=== PATIENT | female | born 1950 | race Caucasian/White ===

== ENCOUNTER 2025-03-13 14:51 | Inpatient (IN) | payer SELFPAY ==
[~2025-03-13] VITALS: Ht 157.5 cm; Wt 73.5 kg
[2025-03-13 14:58] VITALS: O2SAT 98
[2025-03-13 15:59] LABS: BASOPHILS % 0.4 % (0.0-2.0); DIFFERENTIAL COMMENT 0; EOSINOPHILS % 0.9 % (0.0-5.0); HEMOGLOBIN. 10.7 g/dL (12.0-16.0); LYMPHOCYTES % 12.7 % (20.0-50.0); MEAN CORPUSCULAR HGB CONC 32.5 g/dL (31.0-37.0); MEAN CORPUSCULAR VOLUME 76.9 fL (81.0-99.0); MEAN PLATELET VOLUME 7.6 fl (7.4-10.4); MONOCYTES % 8.6 % (2.0-8.0); NEUTROPHILS % 77.4 % (40.0-76.0); PLATELET 242 x1000/uL (130-400); RED CELL DISTRIBUTION WIDTH 19.5 % (11.6-14.6); WHITE BLOOD COUNT 8.9 x1000/uL (4.5-11.0)
[2025-03-13 16:05] LABS: CHLORIDE 103 mEq/L (98-107); POTASSIUM 3.5 mEq/L (3.5-5.1); SODIUM 139 mEq/L (136-145)
[2025-03-13 16:06] LABS: CALCIUM 9.3 mg/dL (8.7-10.4); CARBON DIOXIDE 26 mEq/L (21-32)
[2025-03-13 16:11] LABS: CREATININE 0.6 mg/dL (0.6-1.0); GLUCOSE 126 mg/dL (70-105); UREA NITROGEN BLOOD 15 mg/dL (9-23)
[2025-03-13 16:12] LABS: PROTHROMBIN TIME 10.6 sec (9.6-11.0)
[2025-03-13] MEDS: MORPHINE SULFATE 4 MG/ML INJ (FOR IV/IM USE) IV STA (17:59)
[2025-03-13 20:00] VITALS: BP 120/57; PULSE 78; RESP 20; TEMP 35.6; O2SAT 100
[2025-03-13] MEDS ORDERED: ACETAMINOPHEN 325MG TABLET PO PRN ×2 (21:00)
[2025-03-13] MEDS ORDERED: IPRATROPIUM/ALBUTEROL 0.5-3(2.5)MG/3ML NEB HHN PRN (21:00)
[2025-03-13] MEDS: PANTOPRAZOLE SODIUM 40 MG/VIAL IV SCH (21:16)
[2025-03-13] MEDS: DEXT 5%/0.9% NACL 1,000 ML IV SCH (21:16)
[2025-03-13 21:17] VITALS: BP 136/76; PULSE 104; RESP 17; TEMP 36.7
[2025-03-13] MEDS: MORPHINE SULFATE 4 MG/ML INJ (FOR IV/IM USE) IV PRN (21:37)
[2025-03-14] VITALS: BP 108/54; PULSE 75; RESP 20; TEMP 36.6; O2SAT 98
[2025-03-14 00:18] LABS: CLARITY URINE CLEAR (CLEAR); COLOR URINE YELLOW (YELLOW); GLUCOSE URINE NEGATIVE (NEGATIVE); KETONES URINE 2+ (NEGATIVE); LEUKOCYTE ESTERASE URINE NEGATIVE (NEGATIVE); NITRITE URINE NEGATIVE (NEGATIVE); OCCULT BLOOD URINE NEGATIVE (NEGATIVE); PROTEIN URINE NEGATIVE (NEGATIVE); SPECIFIC GRAVITY URINE 1.022 (1.005-1.030); UROBILINOGEN URINE 0.2 E.U./dL (0.2-1.0)
[2025-03-14 01:04] LABS: *AMPHETAMINES SCREEN URINE NEGATIVE (NEGATIVE); *BARBITURATES SCREEN URINE NEGATIVE (NEGATIVE); *BENZODIAZEPINES SCREEN URINE NEGATIVE (NEGATIVE); *COCAINE SCREEN URINE NEGATIVE (NEGATIVE); CANNABINOID URINE SCREEN NEGATIVE (NEGATIVE); ECSTASY MDMA SCREEN URINE NEGATIVE (NEGATIVE); METHADONE URINE SCREEN NEGATIVE (NEGATIVE); OPIATES URINE SCREEN PRESUMPTIVE POSITIVE (NEGATIVE); PHENCYCLIDINE URINE SCREEN NEGATIVE (NEGATIVE)
[2025-03-14 01:40] LABS: FERRITIN 15 ng/mL (10-291); FOLIC ACID (FOLATE) SERUM > 20.00 ng/mL (>5.38)
[2025-03-14 01:41] LABS: VITAMIN B12 SERUM 372 pg/mL (211-911)
[2025-03-14 01:43] LABS: CREATINE KINASE 92 IU/L (34-145)
[2025-03-14 04:26] LABS: TROPONIN I HIGH SENSITIVITY < 4 ng/L (3.0-34)
[2025-03-14] MEDS ORDERED: NALOXONE HCL 0.4MG/ML VIAL IV PRN (07:45)
[2025-03-14 08:00] VITALS: BP 111/53; PULSE 84; RESP 20; TEMP 36.6; O2SAT 98
[2025-03-14] MEDS: HYDROMORPHONE HCL/PF 2MG/ML INJ IV PRN (08:24)
[2025-03-14 08:32] LABS: BASOPHILS % 0.6 % (0.0-2.0); DIFFERENTIAL COMMENT 0; EOSINOPHILS % 0.6 % (0.0-5.0); HEMATOCRIT. 33.5 % (36.0-48.0); HEMOGLOBIN. 10.9 g/dL (12.0-16.0); LYMPHOCYTES % 16.9 % (20.0-50.0); MEAN CORPUSCULAR HGB CONC 32.7 g/dL (31.0-37.0); MEAN CORPUSCULAR VOLUME 76.6 fL (81.0-99.0); MONOCYTES % 10.3 % (2.0-8.0); NEUTROPHILS % 71.6 % (40.0-76.0); PLATELET 232 x1000/uL (130-400); RED BLOOD CELL COUNT 4.37 mill/uL (4.2-5.4); RED CELL DISTRIBUTION WIDTH 19.2 % (11.6-14.6); WHITE BLOOD COUNT 6.5 x1000/uL (4.5-11.0)
[2025-03-14 08:39] LABS: CHLORIDE 103 mEq/L (98-107); POTASSIUM 3.6 mEq/L (3.5-5.1)
[2025-03-14 08:40] LABS: CALCIUM 8.9 mg/dL (8.7-10.4); CARBON DIOXIDE 27 mEq/L (21-32); SODIUM 139 mEq/L (136-145)
[2025-03-14 08:44] LABS: TROPONIN I HIGH SENSITIVITY 6 ng/L (3.0-34)
[2025-03-14 08:45] LABS: CREATININE 0.5 mg/dL (0.6-1.0); GLUCOSE 137 mg/dL (70-105)
[2025-03-14 08:46] LABS: LDL CHOLESTEROL 68 mg/dL (5-100); TRIGLYCERIDE 68 mg/dL (0-150); UREA NITROGEN BLOOD 9 mg/dL (9-23)
[2025-03-14 08:47] LABS: ALANINE AMINOTRANSFERASE 16 IU/L (10-49); ALBUMIN 3.9 g/dL (3.2-4.8); ASPARTATE AMINOTRANSFERASE 21 IU/L (<34); BILIRUBIN DIRECT 0.2 mg/dL (<=3.0); CHOLESTEROL 140 mg/dL (<200); CREATINE KINASE 79 IU/L (34-145); HDL CHOLESTEROL 51 mg/dL (>65)
[2025-03-14 08:48] LABS: BILIRUBIN TOTAL 0.8 mg/dL (0.1-1.0); PROTEIN TOTAL 6.1 g/dL (6.0-8.3); T4 FREE 1.44 ng/dL (0.89-1.76); THYROID STIMULATING HORMONE < 0.10 uIU/mL (0.55-4.78)
[2025-03-14 09:54] LABS: IRON 118 ug/dL (50-170)
[2025-03-14 09:57] LABS: TOTAL IRON BINDING CAPACITY 298 ug/dl (250-425)
[2025-03-14 12:00] VITALS: BP 111/45; PULSE 79; RESP 20; TEMP 36.8; O2SAT 98
[2025-03-14 16:00] VITALS: BP 118/51; PULSE 95; RESP 20; TEMP 37.2; O2SAT 98
[2025-03-14 20:00] VITALS: BP 116/61; PULSE 104; RESP 20; TEMP 36.7; O2SAT 96
[2025-03-14] MEDS: KETOROLAC 15MG/ML VIAL IV PRN (22:07)
[2025-03-15] VITALS: BP 105/52; PULSE 98; RESP 19; TEMP 37.1; O2SAT 97
== END 2025-03-15 01:20 | disposition left against medical advice (07) | DRG 340 ==
LOC: ER 14:51 → EDBEDREQ 16:39 → EDBEDREQTM 17:57 → ENRESERV 18:06 → 6EST 18:47
PROVIDERS: ADMIT Hospitalist; ATTEND Hospitalist
DX: S72.142A Displaced intertrochanteric fracture of left femur, initial encounter for closed fracture (principal); D50.9 Iron deficiency anemia, unspecified; E11.65 Type 2 diabetes mellitus with hyperglycemia; E03.9 Hypothyroidism, unspecified; E78.00 Pure hypercholesterolemia, unspecified; I10 Essential (primary) hypertension; W01.0XXA Fall on same level from slipping, tripping and stumbling without subsequent striking against object, initial encounter; Z79.84 Long term (current) use of oral hypoglycemic drugs; Z79.899 Other long term (current) drug therapy; Y93.89 Activity, other specified; Y92.520 Airport as the place of occurrence of the external cause; Y99.8 Other external cause status; Z53.29 Procedure and treatment not carried out because of patient's decision for other reasons
CPT/HCPCS: 36415; 72170; 73552; 80048; 80061; 80076; 80305; 81003; 82550; 82607; 82728; 82746; 83540; 83550; 84439; 84443; 84484; 85025; 86850; 86900; 99285; J1171; J1885; J2270; J2470; J7042